=== PATIENT | male | born 1995 | race Caucasian/White ===

== ENCOUNTER 2017-12-24 10:40 | Day surgery (SDC) | payer OTHER ==
[2017-12-24] MEDS ORDERED: LIDOCAINE 1% (MPF) 30 ML INJ (13:00)
[2017-12-24] MEDS ORDERED: MIDAZOLAM 1 MG/ML 2 ML INJ (13:06)
[2017-12-24] MEDS ORDERED: FENTAnyl 50 MCG/ML VIAL (13:06)
[2017-12-24] MEDS: BUPIVACAINE 0.5% (SDV) 30 ML INJ (13:33)
[2017-12-24] MEDS: POVIDONE IODINE 10% 28.4 GM OINT (13:37)
[2017-12-24] MEDS ORDERED: PROPOFOL 20 ML (13:44)
[2017-12-24] MEDS ORDERED: CEFAZOLIN 1 GM INJ (13:44)
[2017-12-24] MEDS ORDERED: LIDOCAINE 2% (SDV) 5 ML INJ (13:44)
[2017-12-24] MEDS ORDERED: ONDANSETRON 4 MG INJ (13:44)
[2017-12-24] MEDS ORDERED: HYDROmorphONE (0.2 MG/ML) 10ML SYG IV (14:00)
[2017-12-24] MEDS ORDERED: ONDANSETRON 4 MG INJ IV (14:00)
[2017-12-24] MEDS ORDERED: DIPHENHYDRAMINE 50 MG INJ IV (14:00)
[2017-12-24] MEDS ORDERED: FENTAnyl 50 MCG/ML VIAL IV (14:00)
[2017-12-24] MEDS ORDERED: MEPERIDINE 25 MG INJ IV (14:00)
== END 2017-12-24 15:25 | disposition home or self-care (01) ==
LOC: SDS 10:40
DX: L60.0 Ingrowing nail (principal); L03.032 Cellulitis of left toe
CPT/HCPCS: 11750